=== PATIENT | female | born 1985 | race Caucasian/White ===

== ENCOUNTER → 2017-10-15 | Outpatient (CLI) | payer MEDICAID, SELFPAY | PROVIDERS: Family Provider Nurse Practitioner Family; Visit Provider Nurse Practitioner Family | DX: R10.10 Upper abdominal pain, unspecified (principal) | CPT/HCPCS: 76705 ==

== ENCOUNTER → 2018-01-10 10:02 | Outpatient (CLI) | payer MEDICAID, SELFPAY ==
--- NOTE | 2018-01-10 10:32 | NM_ITS ---
NM hepatobiliary w pharm HISTORY: Right upper quadrant pain with nausea and vomiting ITS.REASON: NAUSEA,VOMITING ORDERING PHYSICIAN: Zuleyka Lawson PATIENT AGE: 32 years COMPARISON: None DOSE: 8.34 MCI choletec 2.2 mcg of CCK, no pain reported with CCK infusion FINDINGS: Homogeneous activity is present within the hepatic parenchyma. Activity is present in the gallbladder by 15 minutes. Activity is present in the small bowel during the CCK infusion. The gallbladder ejection fraction is calculated to be 84% The patient did not report pain or other symptoms during CCK infusion. IMPRESSION: Unremarkable hepatobiliary scan and gallbladder ejection fraction. No evidence of common or cystic duct obstruction with normal gallbladder ejection fraction
== END ==
PROVIDERS: Family Provider Nurse Practitioner Family; PCP Nurse Practitioner Family; Visit Provider Nurse Practitioner
DX: R11.2 Nausea with vomiting, unspecified (principal)
CPT/HCPCS: 78227; A9537; J2805

== ENCOUNTER → 2018-07-28 12:29 | Outpatient (CLI) | payer MEDICAID, SELFPAY ==
--- NOTE | 2018-07-28 12:31 | XR_ITS ---
XR forearm LT 2V HISTORY: Left forearm pain, previous fracture ITS.REASON: left forearm pain ORDERING PHYSICIAN: Jesus Trejo MD PATIENT AGE: 33 years COMPARISON: 05/06/2017 FINDINGS: There is persistent fracture line at the junction of proximal and mid aspect of the ulna. There is a moderate amount callus formation however there does appear to be incomplete bony union. There is mild ulnar angulation of the distal fracture fragment. The radius has an unremarkable appearance. IMPRESSION: Overall no change in incomplete bony union of the ulnar fracture at the proximal to mid shaft of the ulna
== END ==
PROVIDERS: PCP Nurse Practitioner Family; Visit Provider Orthopaedic Surgery
DX: M79.632 Pain in left forearm (principal)
CPT/HCPCS: 73090

== ENCOUNTER → 2018-11-03 10:28 | Outpatient (CLI) | payer MEDICAID, SELFPAY | PROVIDERS: PCP Nurse Practitioner Family; Visit Provider Nurse Practitioner Family | DX: R00.0 Tachycardia, unspecified (principal); R00.2 Palpitations | CPT/HCPCS: 93225; 93226 ==

== ENCOUNTER → 2019-02-20 10:58 | Outpatient (CLI) | payer MEDICAID, SELFPAY ==
--- NOTE | 2019-02-20 11:14 | XR_ITS ---
XR elbow LT min 3V HISTORY: Bilateral elbow clicking ITS.REASON: CLICKING OF ELBOW ORDERING PHYSICIAN: Sada Rainey APRN PATIENT AGE: 33 years COMPARISON: None FINDINGS: There is a bone plate present over the proximal aspect of the ulna without old fracture. There is good alignment with minimal osteoarthritic changes with minimal spurring of the radial head and the coracoid process. No displaced fat pad. No acute fracture or dislocation. IMPRESSION: Minimal osteoarthritic change, prior ORIF of the proximal ulna
--- NOTE | 2019-02-20 11:14 | XR_ITS ---
XR elbow RT min 3V HISTORY: ITS.REASON: CLICKING OF ELBOW ORDERING PHYSICIAN: Sada Rainey APRN PATIENT AGE: 33 years COMPARISON: None FINDINGS: No fracture or dislocation. No lytic or blastic change. There is a tiny calcific density along the distal and anterior aspect of the humerus and could be due to an artifact. No displaced fat pads. IMPRESSION: 1. No acute finding. 2. Tiny density at the distal and anterior aspect of the humerus possibly due to a small intra-articular calcification versus artifact
== END ==
PROVIDERS: PCP Nurse Practitioner Family; Visit Provider Nurse Practitioner Family
DX: R29.898 Other symptoms and signs involving the musculoskeletal system (principal)
CPT/HCPCS: 73080

== ENCOUNTER → 2019-05-29 11:15 | Outpatient (CLI) | payer MEDICAID, SELFPAY ==
[2019-05-29 11:58] LABS: Basophils # 0.1 K/mm3 (0-0.2); Basophils % 0.7 % (0.1-2.0); Eosinophils # 0.4 K/mm3 (0.0-0.4); Eosinophils % 5.3 % (0.1-12.0); Hematocrit 43.1 % (37.0-47.0); Hemoglobin 14.6 g/dL (12.2-16.2); Lymphocytes # 2.8 K/mm3 (0.7-4.5); Lymphocytes % 36.2 % (10-50); Mean Corpuscular Hemoglobin 32.2 pg (27.0-31.2); Mean Corpuscular Volume 94.8 fl (81-99); Mean Platelet Volume 7.3 fl (7.4-10.4); Monocytes # 0.6 K/mm3 (0.1-1.0); Monocytes % 8.1 % (1.7-9.3); Neutrophils # 3.9 K/mm3 (1.8-7.8); Neutrophils % 49.8 % (37.0-80.0); Platelet Count 329 K/mm3 (142-424); Red Blood Count 4.54 M/mm3 (4.20-5.40); Red Cell Distribution Width 13.3 % (11.5-17.5); White Blood Count 7.8 K/mm3 (4.8-10.8)
[2019-05-29 13:04] LABS: Alanine Aminotransferase 35 U/L (12-78); Albumin Level 4.1 gm/dL (3.4-5.0); Albumin/Globulin Ratio 1.4 (1.1-1.8); Alkaline Phosphatase 79 U/L (46-116); Amylase 42 U/L (25-115); Anion Gap 12.4 mEq/L (5-15); Aspartate Amino Transferase 24 U/L (15-37); Bilirubin,Total 0.4 mg/dL (0.2-1.0); Blood Urea Nitrogen 10 mg/dL (7-18); Carbon Dioxide 30 mmol/L (21.0-32.0); Chloride 103 mmol/L (98-107); Creatinine,Serum 0.89 mg/dL (0.55-1.02); Estimated Glomerular Filt Rate 73 ml/min (>60); GFR (African American) 88 ML/MIN (>60); Globulin 2.9 gm/dl (1.3-3.2); Glucose 142 mg/dL (74-106); Lipase 159 u/L (73-393); Potassium 4.4 mmoL/L (3.5-5.1); Sodium 141 mmol/L (136-145)
[2019-05-31 09:42] LABS: H. pylori Breath Test Negative (Negative)
== END ==
PROVIDERS: Visit Provider Nurse Practitioner Family
DX: R10.13 Epigastric pain (principal); R10.10 Upper abdominal pain, unspecified
CPT/HCPCS: 36415; 80053; 82150; 83013; 83690; 85025

== ENCOUNTER → 2019-06-09 08:21 | Outpatient (CLI) | payer MEDICAID, SELFPAY ==
--- NOTE | 2019-06-09 08:32 | US_ITS ---
PROCEDURE: US ABDOMEN LIMITED Patient Age:34Y CLINICAL INDICATION: DYSPEPSIA,ABD PAIN Belching upper abdominal pain COMPARISON: RUQ US RUQ-(ABD LTD)1ORGAN/QUAD/FU from 10/15/2017 FINDINGS: PANCREAS: Unremarkable. No obvious mass or abnormal fluid collection. No ductal dilatation LIVER: No focal liver lesions demonstrated. Minimal fatty changes at liver.. No intrahepatic biliary ductal dilatation evident. There is appropriate direction of blood flow within a non dilated portal vein . Common duct normal in diameter measuring 3.5 mm and hilum of the liver. RIGHT KIDNEY: Unremarkable. Normal size and echogenicity. No hydronephrosis GALLBLADDER: No gallstones,. Minimal sludge Normal/Upper normal gallbladder wall thickness. No inflammatory changes adjacent to the gallbladder-No pericholecystic fluid, or biliary dilatation.. IMPRESSION: Gallbladder: No gallstones Only minimal sludge in gallbladder. Liver:. Minimal fatty changes throughout liver. Dictated by: Km Carter MD 06/09/2019 12:00 Signed by: <Electronically signed by Km Carter MD in [place]> 06/12/2019 16:26
== END ==
PROVIDERS: PCP Nurse Practitioner Family; Visit Provider Nurse Practitioner Family
DX: R10.13 Epigastric pain (principal); R10.10 Upper abdominal pain, unspecified
CPT/HCPCS: 76705

== ENCOUNTER → 2019-10-26 11:01 | Outpatient (CLI) | payer OTHER, SELFPAY ==
[2019-10-26 12:38] LABS: Alanine Aminotransferase 28 U/L (12-78); Albumin Level 4.3 gm/dL (3.4-5.0); Albumin/Globulin Ratio 1.5 (1.1-1.8); Alkaline Phosphatase 59 U/L (46-116); Anion Gap 14.9 mEq/L (5-15); Aspartate Amino Transferase 18 U/L (15-37); Bilirubin,Total 0.6 mg/dL (0.2-1.0); Blood Urea Nitrogen 8 mg/dL (7-18); Calcium 8.8 mg/dL (8.5-10.1); Carbon Dioxide 26 mmol/L (21.0-32.0); Chloride 103 mmol/L (98-107); Cholesterol 134 mg/dL (140-200); Creatinine,Serum 0.91 mg/dL (0.55-1.02); Estimated Glomerular Filt Rate 71 ml/min (>60); GFR (African American) 86 ML/MIN (>60); Globulin 2.8 gm/dl (1.3-3.2); Glucose 146 mg/dL (74-106); HDL Cholesterol 27 mg/dL (29-89); LDL Cholesterol 74 mg/dL (0-130); Potassium 3.9 mmoL/L (3.5-5.1); Sodium 140 mmol/L (136-145); Thyroid Stimulating Hormone 0.37 uIU/ml (0.358-3.740); Total Protein,Serum 7.1 gm/dL (6.4-8.2); Triglycerides 163 mg/dL (30-200); VLDL Cholesterol 33 mg/dL (0-40)
== END ==
PROVIDERS: Visit Provider Nurse Practitioner Family
DX: I10 Essential (primary) hypertension (principal)
CPT/HCPCS: 36415; 80053; 80061; 84443

== ENCOUNTER → 2019-11-02 11:17 | Outpatient (CLI) | payer OTHER, SELFPAY ==
--- NOTE | 2019-11-02 13:31 | CT_ITS ---
PROCEDURE: CT ABDOMEN PELVIS W CON CLINICAL INDICATION: RIGHT SIDE ABD PAIN Right-sided abdominal pain with fever COMPARISON: No exams were available for comparison TECHNIQUE: IV Contrast: 75ML OPTIRAY 350 Oral Contrast 20ml Gastroview Axial images obtained with sagittal and coronal reformats. All CT scans at the facility use one or more dose reduction, viz: automated exposure control, ma/kV adjustment per patient size (including targeted exams where dose is matched to indication, i.e. head), or iterative reconstruction technique. FINDINGS: LOWER THORAX: No acute finding ABDOMEN & PELVIS: The liver, gallbladder, spleen, pancreas, adrenal glands, and kidneys have an unremarkable appearance. No renal or ureteral calculi. No intestinal obstruction or free air. The appendix is slightly plump measuring up to 9 mm in diameter. There is however no stranding of the periappendiceal fat and no fluid evident within the appendiceal lumen. No periappendiceal fluid collections or free air. No pelvic mass abnormal fluid collection or focal inflammatory change. Air density is present in the vagina consistent with a tampon. No acute bony findings are evident. IMPRESSION: 1. The appendix is slightly plump. This may only represent a variation of normal. No stranding of the periappendiceal fat or abnormal fluid collections. Early appendicitis is not excluded by CT criteria. Correlation with clinical parameters is therefore needed. If clinical findings are inconclusive then, would recommend a follow-up exam with contrast in 12-24 hours. 2. Otherwise negative Dictated by: Fco Ritchei MD 11/02/2019 14:34 Electronically signed by Fco Ritchie MD in [place] 11/02/2019 14:34
== END ==
PROVIDERS: PCP Nurse Practitioner Family; Visit Provider Nurse Practitioner Family
DX: R10.9 Unspecified abdominal pain (principal); R50.9 Fever, unspecified
CPT/HCPCS: 74177; Q9967

== ENCOUNTER → 2020-04-05 15:11 | Outpatient (CLI) | payer OTHER, SELFPAY ==
--- NOTE | 2020-04-05 15:18 | XR_ITS ---
PROCEDURE: XR SHOULDER RT MIN 2V CLINICAL INDICATION: RT ROTATOR CUFF INJURY Anterior shoulder pain COMPARISON: No exams were available for comparison FINDINGS: No fracture or dislocation. No lytic or blastic change. There is normal mineralization. The joint spaces are well-preserved. No significant degenerative/arthritic changes. No erosive changes evident. Other findings:There is some minimal soft tissue calcification versus artifact superior to the AC joint. IMPRESSION: Negative right shoulder Dictated by: Fco Ritchie MD 04/05/2020 16:01 Electronically signed by Fco Ritchie MD in [place] 04/05/2020 16:01
== END ==
PROVIDERS: PCP Nurse Practitioner Family; Visit Provider Nurse Practitioner Family
DX: S46.001A Unspecified injury of muscle(s) and tendon(s) of the rotator cuff of right shoulder, initial encounter (principal); S49.91XA Unspecified injury of right shoulder and upper arm, initial encounter
CPT/HCPCS: 73030

== ENCOUNTER → 2020-10-14 10:41 | Outpatient (CLI) | payer OTHER, SELFPAY ==
--- NOTE | 2020-10-14 10:50 | XR_ITS ---
PROCEDURE: XR FOOT LT MIN 3V CLINICAL INDICATION: LT FOOT PAIN COMPARISON: No exams were available for comparison FINDINGS: No fracture or dislocation. No lytic or blastic change. There is normal mineralization. The joint spaces are well-preserved. There is mild spurring superiorly of the talonavicular articulation.. No erosive changes evident. Other findings:None. IMPRESSION: No acute findings. Dictated by: Dr. Broderick Chavarria MD 10/14/2020 12:43 Dr. Broderick Chavarria MD in [place] 10/14/2020 12:43
== END ==
PROVIDERS: PCP Nurse Practitioner Family; Visit Provider Nurse Practitioner Family
DX: M79.672 Pain in left foot (principal)
CPT/HCPCS: 73630

== ENCOUNTER → 2021-04-24 10:53 | Outpatient (CLI) | payer OTHER, SELFPAY ==
--- NOTE | 2021-04-24 11:01 | US_ITS ---
PROCEDURE: US TRANSVAGINAL CLINICAL INDICATION: PELVIC PAIN Vaginal discharge COMPARISON: CT CT ABDOMEN PELVIS W CON from 11/02/2019 FINDINGS: UTERUS: 9cm x 5cmx 5cm with a combined endometrial thickness of 5.9mm LEFT OVARY: [id number] with a volume of 3.8ml. RIGHT OVARY: [id number] with a volume of 11.1ml. 13 mm nabothian cyst is present along the posterior aspect of the cervix. scar is noted anteriorly. In the anterior aspect of the body of the uterus there is a 2 x 1.7 cm area of mixed echogenicity suggesting a fibroid. No cul-de-sac fluid apparent. There is bilateral ovarian blood flow with small follicles on both sides measuring up to 1.3 cm on the right. IMPRESSION: Nabothian cyst. Small uterine fibroid Dictated by: Fco Ritchie MD 04/24/2021 12:18 Fco Ritchie MD in [place] 04/24/2021 12:18
== END ==
PROVIDERS: PCP Nurse Practitioner Family; Visit Provider Nurse Practitioner Family
DX: R10.2 Pelvic and perineal pain (principal)
CPT/HCPCS: 76830

== ENCOUNTER → 2021-07-08 10:18 | Outpatient (CLI) | payer OTHER, SELFPAY ==
[2021-07-08 11:00] LABS: Chloride 104 mmol/L (98-107)
[2021-07-08 11:01] LABS: Potassium 4.3 mmoL/L (3.5-5.1); Sodium 141 mmol/L (136-145)
[2021-07-08 11:03] LABS: Alanine Aminotransferase 24 U/L (12-78); Aspartate Amino Transferase 23 U/L (14-36); Blood Urea Nitrogen 13 mg/dl (7-17); Estimated Glomerular Filt Rate 95 ml/min (>60); GFR (African American) 115 ML/MIN (>60)
[2021-07-08 11:04] LABS: Albumin Level 4.2 g/dl (3.5-5.0); Albumin/Globulin Ratio 1.8 (1.1-1.8); Alkaline Phosphatase 81 U/L (38-126); Anion Gap 17.3 mEq/L (5-15); Bilirubin,Total 0.2 mg/dl (0.2-1.3); Calcium 8.6 mg/dl (8.4-10.2); Carbon Dioxide 24 mmol/L (22.0-30.0); Globulin 2.4 g/dL (1.3-3.2); Glucose 154 mg/dl (74-100); Total Protein,Serum 6.6 g/dl (6.3-8.2)
[2021-07-08 11:36] LABS: Thyroid Stimulating Hormone 0.63 uIU/mL (0.465-4.68)
== END ==
PROVIDERS: Visit Provider Nurse Practitioner Family
DX: R63.5 Abnormal weight gain (principal)
CPT/HCPCS: 36415; 80053; 83036; 84439; 84443

== ENCOUNTER → 2022-02-19 11:02 | Outpatient (CLI) | payer OTHER, SELFPAY ==
[2022-02-19 12:04] LABS: Chloride 105 mmol/L (98-107); Potassium 4.1 mmoL/L (3.5-5.1); Sodium 140 mmol/L (136-145)
[2022-02-19 12:05] LABS: Hemoglobin A1C 6.2 % (4.0-6.0)
[2022-02-19 12:06] LABS: Alanine Aminotransferase 22 U/L (12-78); Alkaline Phosphatase 50 U/L (38-126); Aspartate Amino Transferase 26 U/L (14-36); Blood Urea Nitrogen 10 mg/dl (7-17); Estimated Glomerular Filt Rate 82 ml/min (>60); GFR (African American) 99 ML/MIN (>60)
[2022-02-19 12:07] LABS: Albumin Level 4.5 g/dl (3.5-5.0); Anion Gap 14.1 mEq/L (5-15); Calcium 9.7 mg/dl (8.4-10.2); Carbon Dioxide 25 mmol/L (22.0-30.0); Globulin 2.3 g/dL (1.3-3.2); Glucose 153 mg/dl (74-100); Total Protein,Serum 6.8 g/dl (6.3-8.2)
[2022-02-19 12:37] LABS: Thyroid Stimulating Hormone 0.26 uIU/mL (0.465-4.68)
== END ==
PROVIDERS: PCP Nurse Practitioner Family; Visit Provider Nurse Practitioner Family
DX: E11.9 Type 2 diabetes mellitus without complications (principal); I10 Essential (primary) hypertension; Z79.4 Long term (current) use of insulin
CPT/HCPCS: 36415; 80053; 83036; 84443

== ENCOUNTER 2023-10-25 16:33 | Outpatient (CLI) | payer OTHER, SELFPAY ==
[2023-10-25 17:31] LABS: Erythrocyte Sedimentation Rate 14 mm/hr (0-20)
[2023-10-25 17:42] LABS: Alanine Aminotransferase 21 U/L (12-78); Albumin Level 4.2 g/dl (3.5-5.0); Albumin/Globulin Ratio 1.8 (1.1-1.8); Alkaline Phosphatase 68 U/L (38-126); Anion Gap 10.9 mEq/L (5-15); Aspartate Amino Transferase 25 U/L (14-36); Bilirubin,Total 0.7 mg/dl (0.2-1.3); Blood Urea Nitrogen 7 mg/dl (7-17); Calcium 8.6 mg/dl (8.4-10.2); Carbon Dioxide 25 mmol/L (22.0-30.0); Chloride 105 mmol/L (98-107); Chol/HDL Ratio 5.7 (1-3.5); Cholesterol 131 mg/dl (140-200); Estimated Glomerular Filt Rate 81 ml/min (>60); GFR (African American) 98 ML/MIN (>60); Globulin 2.4 g/dL (1.3-3.2); Glucose 104 mg/dl (74-100); HDL Cholesterol 23 mg/dl (40-60); Magnesium 1.8 mg/dl (1.6-2.3); Potassium 3.9 mmoL/L (3.5-5.1); Sodium 137 mmol/L (136-145); Total Protein,Serum 6.6 g/dl (6.3-8.2); Triglycerides 301 mg/dl (30-150); Uric Acid 4.3 mg/dl (2.5-6.2); VLDL Cholesterol 60 mg/dL (0-40)
[2023-10-25 17:53] LABS: Direct LDL Cholesterol 74.42 mg/dL (100-129)
[2023-10-25 18:13] LABS: Hemoglobin A1C 6.3 % (4.0-6.0)
[2023-10-25 18:14] LABS: Thyroid Stimulating Hormone 0.59 uIU/mL (0.465-4.68)
[2023-10-25 18:16] LABS: Ferritin 95.9 ng/ml (6.24-137)
[2023-10-27 08:32] LABS: RA Latex Turbid. <10.0 IU/mL (<14.0)
[2023-10-28 13:21] LABS: Antinuclear Antibodies, IFA Negative (.)
== END 2023-10-25 23:59 ==
LOC: LAB.DROPOF 16:33
PROVIDERS: PCP Nurse Practitioner Family; Visit Provider Nurse Practitioner Family
DX: E11.9 Type 2 diabetes mellitus without complications (principal); M25.50 Pain in unspecified joint; R20.2 Paresthesia of skin; R00.2 Palpitations; R63.5 Abnormal weight gain; Z68.37 Body mass index [BMI] 37.0-37.9, adult
CPT/HCPCS: 80053; 80061; 82728; 83036; 83735; 84443; 84550; 85651; 86038; 86431

== ENCOUNTER 2024-02-01 17:01 | Outpatient (CLI) | payer OTHER, SELFPAY ==
[2024-02-01 17:40] LABS: Basophils # 0.1 K/mm3 (0-0.2); Basophils % 1.2 % (0.1-2.0); Eosinophils # 0.2 K/mm3 (0.0-0.4); Eosinophils % 2.9 % (0.1-12.0); Hematocrit 45.7 % (37.0-47.0); Hemoglobin 15.5 g/dL (12.2-16.2); Lymphocytes # 2.8 K/mm3 (0.7-4.5); Lymphocytes % 37.9 % (10-50); Mean Corpuscular Hemoglobin 33.3 pg (27.0-31.2); Mean Corpuscular Volume 97.8 fl (81-99); Mean Platelet Volume 8.3 fl (7.4-10.4); Monocytes # 0.6 K/mm3 (0.1-1.0); Monocytes % 8.1 % (1.7-9.3); Neutrophils # 3.7 K/mm3 (1.8-7.8); Neutrophils % 49.9 % (37.0-80.0); Platelet Count 315 K/mm3 (142-424); Red Blood Count 4.67 M/mm3 (4.20-5.40); Red Cell Distribution Width 13.5 % (11.5-17.5); White Blood Count 7.5 K/mm3 (4.8-10.8)
[2024-02-01 18:42] LABS: Alanine Aminotransferase 29 U/L (12-78); Albumin Level 4.5 g/dl (3.5-5.0); Alkaline Phosphatase 54 U/L (38-126); Anion Gap 14.7 mEq/L (5-15); Aspartate Amino Transferase 32 U/L (14-36); Bilirubin,Total 0.6 mg/dl (0.2-1.3); Blood Urea Nitrogen 10 mg/dl (7-17); Calcium 9.5 mg/dl (8.4-10.2); Carbon Dioxide 23 mmol/L (22.0-30.0); Chloride 109 mmol/L (98-107); Chol/HDL Ratio 4.4 (1-3.5); Cholesterol 148 mg/dl (140-200); Estimated Glomerular Filt Rate 81 ml/min (>60); GFR (African American) 98 ML/MIN (>60); Globulin 2.3 g/dL (1.3-3.2); Glucose 104 mg/dl (74-100); HDL Cholesterol 34 mg/dl (40-60); Potassium 3.7 mmoL/L (3.5-5.1); Sodium 143 mmol/L (136-145); Total Protein,Serum 6.8 g/dl (6.3-8.2); Triglycerides 198 mg/dl (30-150); VLDL Cholesterol 40 mg/dL (0-40)
[2024-02-01 18:58] LABS: T4 (Thyroxine) 9.8 ug/dl (5.53-11.0)
[2024-02-01 19:04] LABS: Hemoglobin A1C 6.6 % (4.0-6.0)
[2024-02-01 19:12] LABS: Thyroid Stimulating Hormone 0.32 uIU/mL (0.465-4.68)
[2024-02-01 19:46] LABS: Direct LDL Cholesterol 82.73 mg/dL (100-129)
[2024-02-03 12:43] LABS: Triiodothyronine (T3) Free 3.7 pg/mL (2.0-4.4)
== END 2024-02-01 23:59 | disposition home or self-care (01) ==
LOC: LAB.DROPOF 17:02
PROVIDERS: PCP Nurse Practitioner Family; Visit Provider Nurse Practitioner Family
DX: I10 Essential (primary) hypertension (principal); R63.5 Abnormal weight gain; R00.2 Palpitations; E11.9 Type 2 diabetes mellitus without complications; Z79.899 Other long term (current) drug therapy
CPT/HCPCS: 80053; 80061; 83036; 84436; 84443; 84481; 85025

== ENCOUNTER 2024-03-24 10:22 | Outpatient (CLI) | payer OTHER, SELFPAY ==
--- NOTE | 2024-03-24 10:28 | XR_ITS ---
FINAL REPORT CLINICAL HISTORY: left upper chest injury on 03/10/24 FINDINGS: 2 views of the chest were obtained . The heart is normal in size. The mediastinum is within normal limits. The lungs are clear. There is no pneumothorax. Osseous structures are unremarkable. IMPRESSION: No acute cardiopulmonary process. Reviewed, Interpreted and Dictated by Raul Vicente III, MD Transcribed by Joy Scott Authenticated and . [facility]
== END 2024-03-24 23:59 | disposition home or self-care (01) ==
LOC: RAD 10:22
PROVIDERS: PCP Nurse Practitioner Family; Visit Provider Nurse Practitioner Family
DX: R07.89 Other chest pain (principal); S29.9XXA Unspecified injury of thorax, initial encounter
CPT/HCPCS: 71046

== ENCOUNTER 2025-01-10 10:17 | Outpatient (CLI) | payer OTHER, SELFPAY ==
--- NOTE | 2025-01-10 10:23 | XR_ITS ---
FINAL REPORT CLINICAL HISTORY: right foot pain and swelling..no trauma FINDINGS: AP, oblique and lateral views of the right foot were obtained. There is no acute fracture or dislocation. Deformity of the navicular could be related to old trauma or degenerative change. The joint spaces are preserved. Soft tissues are unremarkable. IMPRESSION: No acute osseous abnormality of the right foot. Reviewed, Interpreted and Dictated by Gem Judge MD Transcribed by Mariana Stern Authenticated and [facility]
--- NOTE | 2025-01-10 10:23 | XR_ITS ---
FINAL REPORT CLINICAL HISTORY: dorsalgia of lumbar spine..pain..no trauma FINDINGS: AP and lateral views of the lumbar spine were obtained. There is no prior exam for comparison. There is no acute fracture. There is grade 1 anterior spondylolisthesis of L5 on S1. Alignment is otherwise normal. Vertebral body height is preserved. There is mild degenerative disc disease. No acute paraspinal abnormality. IMPRESSION: No acute osseous abnormality of the lumbar spine. Mild degenerative disc disease. Reviewed, Interpreted and Dictated by Gem Judge MD Transcribed by Mariana Stern Authenticated and [facility]
--- NOTE | 2025-01-10 10:23 | XR_ITS ---
FINAL REPORT CLINICAL HISTORY: coccydynia..no trauma..pain FINDINGS: AP and lateral views of the sacrum and coccyx were obtained. There is no prior exam for comparison. There is no acute fracture or other acute osseous abnormality. The SI joints are symmetric bilaterally. There is no ankylosis. The sacrococcygeal articulation appears within normal limits. No acute soft tissue abnormality is present. IMPRESSION: No acute abnormality of the sacrum or coccyx. Reviewed, Interpreted and Dictated by Gem Judge MD Transcribed by Mariana Stern Authenticated and [facility]
[2025-01-10 11:01] LABS: Basophils # 0.1 K/mm3 (0-0.2); Basophils % 0.7 % (0.1-2.0); Eosinophils # 0.5 K/mm3 (0.0-0.4); Eosinophils % 4.8 % (0.1-12.0); Hematocrit 42.7 % (37.0-47.0); Hemoglobin 15.1 g/dL (12.2-16.2); Lymphocytes # 2.8 K/mm3 (0.7-4.5); Lymphocytes % 27.8 % (10-50); Mean Corpuscular HGB Conc 35.4 g/dL (31.8-35.4); Mean Corpuscular Hemoglobin 32.6 pg (27.0-31.2); Mean Corpuscular Volume 92.2 fl (81-99); Mean Platelet Volume 9.8 fl (7.4-10.4); Monocytes # 0.6 K/mm3 (0.1-1.0); Monocytes % 5.5 % (1.7-9.3); Neutrophils # 6.1 K/mm3 (1.8-7.8); Neutrophils % 60.8 % (37.0-80.0); Platelet Count 314 K/mm3 (142-424); Red Blood Count 4.63 M/mm3 (4.20-5.40); Red Cell Distribution Width 12.5 % (11.5-17.5)
[2025-01-10 11:20] LABS: Alanine Aminotransferase 19 U/L (12-78); Albumin Level 4.8 g/dl (3.5-5.0); Albumin/Globulin Ratio 2.3 (1.1-1.8); Alkaline Phosphatase 55 U/L (38-126); Anion Gap 17.3 mEq/L (5-15); Aspartate Amino Transferase 19 U/L (14-36); Bilirubin,Total 0.5 mg/dl (0.2-1.3); Blood Urea Nitrogen 17 mg/dl (7-17); Calcium 9.9 mg/dl (8.4-10.2); Carbon Dioxide 22 mmol/L (22.0-30.0); Chloride 104 mmol/L (98-107); Chol/HDL Ratio 3.3 (1-3.5); Cholesterol 134 mg/dl (140-200); Estimated Glomerular Filt Rate 70 ml/min (>60); GFR (African American) 85 ML/MIN (>60); Globulin 2.1 g/dL (1.3-3.2); Glucose 118 mg/dl (74-100); HDL Cholesterol 41 mg/dl (40-60); Magnesium 2.1 mg/dl (1.6-2.3); Potassium 4.3 mmoL/L (3.5-5.1); Sodium 139 mmol/L (136-145); Total Protein,Serum 6.9 g/dl (6.3-8.2); Triglycerides 98 mg/dl (30-150); VLDL Cholesterol 20 mg/dL (0-40)
[2025-01-10 11:31] LABS: Direct LDL Cholesterol 74.28 mg/dL (100-129)
[2025-01-10 11:37] LABS: Free T4 (Free Thyroxine) 1.13 ng/dl (0.78-2.19); T4 (Thyroxine) 7.9 ug/dl (5.53-11.0)
[2025-01-10 11:51] LABS: Thyroid Stimulating Hormone 0.68 uIU/mL (0.465-4.68)
[2025-01-10 12:33] LABS: Creatinine,Urine Random 93 mg/dL (Not Estab.)
[2025-01-10 12:38] LABS: Microalbumin < 6.000 mg/L (0-16.7)
[2025-01-10 15:09] LABS: Hemoglobin A1C 6.3 % (4.0-6.0)
[2025-01-11 14:12] LABS: Triiodothyronine (T3) Free 2.9 pg/mL (2.0-4.4)
[2025-01-12 15:26] LABS: Lyme B. burgdorferi PCR Blood Negative (Negative)
== END 2025-01-10 23:59 | disposition home or self-care (01) ==
LOC: LAB 10:18
PROVIDERS: PCP Nurse Practitioner Family; Visit Provider Nurse Practitioner Family
DX: I10 Essential (primary) hypertension (principal); M53.3 Sacrococcygeal disorders, not elsewhere classified; M54.50 Low back pain, unspecified; S99.921A Unspecified injury of right foot, initial encounter; E11.9 Type 2 diabetes mellitus without complications; E05.90 Thyrotoxicosis, unspecified without thyrotoxic crisis or storm; W57.XXXA Bitten or stung by nonvenomous insect and other nonvenomous arthropods, initial encounter
CPT/HCPCS: 36415; 72100; 72220; 73630; 80053; 80061; 82043; 82570; 83036; 83735; 84436; 84439; 84443; 84481; 85025; 87476

== ENCOUNTER 2025-06-11 12:27 | Outpatient (CLI) | payer OTHER, SELFPAY ==
--- OUTSIDE RECORDS SUMMARY | 2024-08-23 04:00 | XMS_ITS ---
Author Organization [facility] Address [address] [place] [address] Care Team Providers Care Hospital Pharmacy Technician Name Role Phone NORA ISBELL Primary Care Provider MEREDITH FONSECA Unavailable [phone] REASON FOR VISIT LR pain Social History Sex Assigned At : Social History Observation Description Sex Assigned At Female Encounters Encounter Location Date Provider Diagnosis [facility] [address] [place] [address] 08/23/2024 MEREDITH FONSECA Plan Of Treatment No Information Progress Notes * Kassandra MONTOYADOB:1985 (40 yo F)Acc No.[id number]:08/23/2024 Patient: Kassandra Alcala Provider: Jerrod FONSECA DDS :1985 A ge:39 Y S ex:Female Date:08/23/2024 Address:[address], [facility] Pcp:NORA ISBELL Structured Data:[place] : No ; Migrant : No; Not UDS Housing Situation : Own/rent Subjective: * Chief Complaints: * L R pain Billing Information: * Procedure Codes: * Electronic signature of MEREDITH FONSECA DDS on 06/13/2025 at 12:30 PM EDT Sign off status: Pending * Provider: Jerrod FONSECA DDS Date: 10/23/2023 Generated for Mali mera/Sebastian/Rosanna on: 0 06/13/2025 12:30 PM EDT
--- OUTSIDE RECORDS SUMMARY | 2024-10-26 06:30 | XMS_ITS ---
Author Organization [facility] Address [address] [place] [address] Care Team Providers Care Forensic Psychiatrist Name Role Phone NORA ISBELL Primary Care Provider [phone] Allergies Allergen (clinical drug ingredient) Drug/Non Drug Allergy documented on EMR Reaction Allergy Type Onset Date Status No Known Food Allergy Unknown Drug Allergy active Penicillin hives Drug Allergy active REASON FOR VISIT Establish Care Visit / Over all check-up Social History Sex Assigned At : Social History Observation Description Sex Assigned At Female Encounters Encounter Location Date Provider Diagnosis [facility] [address] [place] [facility] [place] [address] 10/26/2024 NORA ISBELL Essential hypertensi on I10 ; Longstanding persistent atrial fibrillation I48.11 ; Migraine without aura and without status migrainosus, not intractable G43.009 ; Type 2 diabetes, HbA1c goal < 7% E11.9 ; Mixed hyperlipidemia E78.2 ; Body mass index (BMI) of 36.0-36.9 in adult Z68.36 and Adult general medical exam Z00.00 Assessments Encounter Date Diagnosis (ICD Code) Assessment Notes Treatment Notes Treatment Clinical Notes Section Notes 10/26/2024 Essential hypertension (ICD-10 - I10) 10/26/2024 Longstanding persistent atrial fibrillation (ICD-10 - I48.11) 10/26/2024 Migraine without aura and without status migrainosus, not intractable (ICD-10 - G43.009) 10/26/2024 Type 2 diabetes, HbA1c goal < 7% (ICD-10 - E11.9) 10/26/2024 Mixed hyperlipidemia (ICD-10 - E78.2) 10/26/2024 Body mass index (BMI) of 36.0-36.9 in adult (ICD-10 - Z68.36) 10/26/2024 Adult general medical exam (ICD-10 - Z00.00) Plan Of Treatment No Information History and Physical Notes * HPI (History of Present Illness) Category Sub-Category Detail Notes Category Not es General HPI Pt is a ___ y/o male with PMH of ____ who presents to clinic today as a new patient to establish care and get medications refilled. Pt states that he is feeling well, and denies any current sxs or health concerns. He states that he is compliant in taking his medications, and believes they are working well for him. Exercise: Diet: Colon CA screen: Examination Category Sub-Category Detail Notes Category Not es General Examination GENERAL APPEARANCE: alert an d active in no acute distress, pleasant, well nourished, well developed. HEAD: normocephalic, atrau matic EYES: extraocular movement intact (EOMI), pupils equal, round, reactive to light and accommodation, conjunctiva clear EARS: auditory canal clear , hearing intact to whispered voice, tympanic membrane intact, clear, light reflex present THROAT: clear, no erythema, no exudate, tonsils normal, uvula midline NECK/THYROID: no carotid bruit, ne ck supple, full range of motion, no cervical lymphadenopathy HEART: S1, S2 normal, no mu rmurs, regular rate and rhythm LUNGS: clear to auscultatio n bilaterally ABDOMEN: non-distended, normo active bowel sounds present, soft, nontender NEUROLOGIC: alert and oriented, gait normal SKIN: no suspicious lesion s, warm and dry PERIPHERAL PULSES: 2+ throughout MUSCULOSKELETAL: normal, full range o f motion in all joints. ORAL CAVITY: good dentition, muco sa moist Progress Notes * Kassandra MONTOYADOB:1985 (40 yo F)Acc No.[id number]:10/26/2024 Progress Notes Patient: Kassandra Alcala Provider: Rubén ISBELL APRN :1985 A ge:39 Y S ex:Female Date:10/26/2024 Address:[address] [facility] Structured Data: : No ; Migrant : No; Not UDS Housing Situation : Own/rent Subjective: * Chief Complaints: * E stablish Care Visit / Over all check-up * HPI: G eneral HPI: Pt is a ___ y/o male with PMH of ____ who presents to clinic today as a new patient to establish care and get medications refilled. Pt states that he is feeling well, and denies any current sxs or health concerns. He states that he is compliant in taking his medications, and believes they are working well for him. Exercise: Diet: Colon CA screen:. * ROS: G eneral ROS: General/Constitutional: D ENIES:, f ever, chills, fatigue, headache, changes in appetite, weight gain/loss. R espiratory: D ENIES:, C hest pain, cough, shortness of breath, sputum production, wheezing. C ardiovascular: D ENIES:, C hest pain, palpitations, heart murmur, high blood pressure, orthopnea, lower extremity edema. G astrointestinal: D ENIES:, A bdominal pain, nausea, vomiting, diarrhea, constipation, blood in stool, change in bowel habits, heartburn, weight loss. P sychiatric: D ENIES:, A nxiety, depressed mood, sleep disturbance, mood lability, thoughs of suicide/self harm. * Allergies: P enicillin: hives - AllergyNo Known Food Allergy: Allergy Objective: * P ast Orders: L ab:LIPID PANEL WITH REFLEX TO DIRECT LDL (Order Date - 08/16/2024) (Collection Date & Time - 08/16/2024 10:28 AM) Value Reference Range TRIGLYCERIDES 143 <150 - mg/dL CHOLESTEROL, TOTAL 121 <200 - mg/dL HDL CHOLESTEROL 38 L > OR = 50 - mg/dL LDL-CHOLESTEROL 60 - mg/dL (calc) CHOL/HDLC RATIO 3.2 <5.0 - (calc) NON HDL CHOLESTEROL 83 <130 - mg/dL (calc) L ab:TSH+FREE T4 (Order Date - 08/16/2024) (Collection Date & Time - 08/16/2024 10:28 AM) Value Reference Range T4, FREE 1.1 0.8-1.8 - ng/dL TSH 0.81 - mIU/L L ab:JILL SCR, IFA W/REFL TITER/PATTERN/LUPUS PNL 4 (Order Date - 08/16/2024) (Collection Date & Time - 08/16/2024 10:28 AM) Value Reference Range JILL SCREEN, IFA NEGATIVE NEGATIVE - COMPLEMENT COMPONENT C3C 166 83-193 - mg/dL COMPLEMENT COMPONENT C4C 24 15-57 - mg/dL DNA (DS) ANTIBODY 1 - IU/mL RIBOSOMAL P ANTIBODY <1.0 NEG <1.0 NEG - AI SM ANTIBODY <1.0 NEG <1.0 NEG - AI SM/COSMETIC SURGEON ANTIBODY <1.0 NEG <1.0 NEG - AI SJOGREN'S ANTIBODY (SS-A) <1.0 NEG <1.0 NEG - AI SJOGREN'S ANTIBODY (SS-B) <1.0 NEG <1.0 NEG - AI THYROID PEROXIDASE ANTIBODIES 1 <9 - IU/mL SCL-70 ANTIBODY <1.0 NEG <1.0 NEG - AI RHEUMATOID FACTOR 11 <14 - IU/mL L ab:COMPREHENSIVE METABOLIC PANEL (Order Date - 08/16/2024) (Collection Date & Time - 08/16/2024 10:28 AM) Value Reference Range GLUCOSE 107 H 65-99 - mg/dL UREA NITROGEN (BUN) 12 7-25 - mg/dL CREATININE 0.72 0.50-0.97 - mg/dL BUN/CREATININE RATIO SEE NOTE: 6-22 - (calc) SODIUM 137 135-146 - mmol/L POTASSIUM 4.0 3.5-5.3 - mmol/L CHLORIDE 107 98-110 - mmol/L CARBON DIOXIDE 24 20-32 - mmol/L CALCIUM 9.0 8.6-10.2 - mg/dL PROTEIN, TOTAL 6.6 6.1-8.1 - g/dL ALBUMIN 4.1 3.6-5.1 - g/dL GLOBULIN 2.5 1.9-3.7 - g/dL (calc ) ALBUMIN/GLOBULIN RATIO 1.6 1.0-2.5 - (calc) BILIRUBIN, TOTAL 0.4 0.2-1.2 - mg/dL ALKALINE PHOSPHATASE 44 31-125 - U/L AST 11 10-30 - U/L ALT 10 6-29 - U/L EGFR 110 > OR = 60 - mL/min/1 .73m2 L ab:CBC (INCLUDES DIFF/PLT) (Order Date - 08/16/2024) (Collection Date & Time - 08/16/2024 10:28 AM) Value Reference Range WHITE BLOOD CELL COUNT 10.6 3.8-10.8 - Thous[place] nd/uL RED BLOOD CELL COUNT 4.74 3.80-5.10 - Million /uL HEMOGLOBIN 14.8 11.7-15.5 - g/dL HEMATOCRIT 45.9 H 35.0-45.0 - % MCV 96.8 80.0-100.0 - fL MCH 31.2 27.0-33.0 - pg MCHC 32.2 32.0-36.0 - g/dL RDW 12.5 11.0-15.0 - % PLATELET COUNT 327 140-400 - Thousand/u L NEUTROPHILS 63 - % ABSOLUTE NEUTROPHILS 6678 2168-8031 - cells/u L LYMPHOCYTES 28.3 - % ABSOLUTE LYMPHOCYTES 3000 850-3900 - cells/uL MONOCYTES 4.8 - % ABSOLUTE MONOCYTES 509 200-950 - cells/uL EOSINOPHILS 3.1 - % ABSOLUTE EOSINOPHILS 329 15-500 - cells/uL BASOPHILS 0.8 - % ABSOLUTE BASOPHILS 85 0-200 - cells/uL MPV 9.8 7.5-12.5 - fL L ab:HEMOGLOBIN A1c (Order Date - 08/16/2024) (Collection Date & Time - 08/16/2024 10:28 AM) Value Reference Range HEMOGLOBIN A1c 6.5 H <5.7 - % of total Hg b * Examination: G eneral Examination: GENERAL APPEARANCE: a lert and active in no acute distress, pleasant, well nourished, well developed.. HEAD: n ormocephalic, atraumatic. EYES: e xtraocular movement intact (EOMI), pupils equal, round, reactive to light and accommodation, conjunctiva clear. EARS: a uditory canal clear, hearing intact to whispered voice, tympanic membrane intact, clear, light reflex present. ORAL CAVITY: g ood dentition, mucosa moist. THROAT: c lear, no erythema, no exudate, tonsils normal, uvula midline. NECK/THYROID: n o carotid bruit, neck supple, full range of motion, no cervical lymphadenopathy. HEART: S 1, S2 normal, no murmurs, regular rate and rhythm.? LUNGS: c lear to auscultation bilaterally. ABDOMEN: n on-distended, normoactive bowel sounds present, soft, nontender. MUSCULOSKELETAL: n ormal, full range of motion in all joints.. PERIPHERAL PULSES: 2 + throughout. NEUROLOGIC: a lert and oriented, gait normal. SKIN: n o suspicious lesions, warm and dry. ? Assessment: * Assessment: 1. E ssential hypertension - I10 (Primary) 2 . L ongstanding persistent atrial fibrillation - I48.11 3 . M igraine without aura and without status migrainosus, not intractable - G43.009 4 . T ype 2 diabetes, HbA1c goal < 7% - E11.9 5. M ixed hyperlipidemia - E78.2 6 . B danielle mass index (BMI) of 36.0-36.9 in adult - Z68.36 7 . A dult general medical exam - Z00.00 ? Billing Information: * Procedure Codes: * Electronic signature of BOOGIE ISBELL APRN on 06/13/2025 at 12:29 PM EDT Sign off status: Pending * Provider: Rubén ISBELL APRN Date: 0 10/26/2024 Generated for [place]i mera/Sebastian/Johnitting on: 0 06/13/2025 12:29 PM EDT
[2025-06-11 14:25] LABS: Hematocrit 46.4 % (37.0-47.0); Hemoglobin 16.2 g/dL (12.2-16.2); Immature Granulocytes % 0.3 %; Mean Corpuscular HGB Conc 34.9 g/dL (31.8-35.4); Mean Corpuscular Hemoglobin 32.4 pg (27.0-31.2); Mean Corpuscular Volume 92.8 fl (81-99); Nucleated Red Blood Cells % 0 %; Platelet Count 270 K/mm3 (142-424); Red Blood Count 5.00 M/mm3 (4.20-5.40); Red Cell Distribution Width-SD 41.5 fL; White Blood Count 13.3 K/mm3 (4.8-10.8)
[2025-06-11 15:00] LABS: Alanine Aminotransferase 19 U/L (12-78); Albumin Level 4.5 g/dl (3.5-5.0); Albumin/Globulin Ratio 2.1 (1.1-1.8); Alkaline Phosphatase 63 U/L (38-126); Anion Gap 15.4 mEq/L (5-15); Aspartate Amino Transferase 23 U/L (14-36); Bilirubin,Total 0.7 mg/dl (0.2-1.3); Blood Urea Nitrogen 14 mg/dl (7-17); Calcium 9.5 mg/dl (8.4-10.2); Carbon Dioxide 24 mmol/L (22.0-30.0); Chloride 104 mmol/L (98-107); Cholesterol 146 mg/dl (140-200); Creatinine,Serum 0.70 mg/dl (0.52-1.04); Estimated Glomerular Filt Rate 93 ml/min (>60); GFR (African American) 113 ML/MIN (>60); Globulin 2.1 g/dL (1.3-3.2); Glucose 95 mg/dl (74-100); HDL Cholesterol 30 mg/dl (40-60); Potassium 4.4 mmoL/L (3.5-5.1); Sodium 139 mmol/L (136-145); Total Protein,Serum 6.6 g/dl (6.3-8.2); Triglycerides 180 mg/dl (30-150)
[2025-06-11 15:11] LABS: C-Reactive Protein 2.6 mg/L (0-4)
[2025-06-11 15:20] LABS: 25-OH Vitamin D, Total 29.1 ng/mL (30-100)
[2025-06-11 15:21] LABS: T4 (Thyroxine) 8.6 ug/dl (5.53-11.0)
[2025-06-11 15:35] LABS: Thyroid Stimulating Hormone 0.40 uIU/mL (0.465-4.68)
[2025-06-11 15:39] LABS: Ferritin 72.1 ng/ml (6.24-137)
[2025-06-11 15:54] LABS: Vitamin B12 271 pg/mL (239-931)
[2025-06-11 16:53] LABS: Hemoglobin A1C 6.0 % (4.0-6.0)
[2025-06-12 08:13] LABS: Triiodothyronine (T3) Free 3.1 pg/mL (2.0-4.4)
--- OUTSIDE RECORDS SUMMARY | 2025-06-13 12:30 | XMS_ITS | Patient Health Record ---
Author Organization [facility] Address [address] [place] [address] Care Team Providers Care Director Property Name Role Phone [facility] Pr matheuser Unavailable Leticia Olvera Unavailable [phone] Allergies Allergen (clinical drug ingredient) Drug/Non Drug Allergy documented on EMR Reaction Allergy Type Onset Date Status clindamycin Clindamycin Unknown Drug Allergy Act sadie ketamine Ketamine Unknown Drug Allergy Active nystatin Nystatin Unknown Drug Allergy Active Penicillin Unknown Drug Allergy Active Results Component Value Reference Range Notes X ray : Wrist, right (CPT 73 110) Reviewed date:08/21/2024 09:11:16 AM Interpretation:Normal Performing Lab: Notes/Report: Normal Reason For Referral No Information Medications Medication SIG (Take, Route, Frequency, Duration) Notes Start Date End Date Status amLODIPine Besylate 10 MG TAKE 1 TABLET BY MOUTH ONCE DAILY Oral; Duration: 90 Days Not-Taking Fenofibrate 145 MG Oral; Duration: 90 Days Not-Taking Propranolol HCl ER 120 MG TAKE 1 CAPSULE BY MOUTH ONCE DAILY Oral; Duration: 90 Days Not-Taking Jardiance 25 MG TAKE 1 TABLET BY MOUTH ONCE DAILY Oral; Duration: 30 Days Not-Taking busPIRone HCl 15 MG TAKE 1 TABLET BY MOUTH TWICE DAILY Oral; Duration: 30 Days Z,Unavailab le Active Fenofibrate 145 MG TAKE 1 TABLET BY MOUTH ONCE DAILY Oral; Duration: 90 Days Active Propranolol HCl ER 120 MG Oral; Duration: 90 Days Active busPIRone HCl 15 MG TAKE 1 TABLET BY MOUTH TWICE DAILY Oral; Duration: 30 Days Not-Taking amLODIPine Besylate 10 MG TAKE 1 TABLET BY MOUTH ONCE DAILY Oral; Duration: 90 Days Z760,Unavailab le Active Jardiance 25 MG TAKE 1 TABLET BY MOUTH ONCE DAILY Oral; Duration: 30 Days Active Problems Problem Type SNOMED Code ICD Code Onset Dates Problem Status W/U Status Risk Notes Problem Afib (I48.91) Active confirmed Vital Signs Heart Rate 76 /min 08/07/2024 Temperature 98.0 degrees Fahrenheit 08/07/2024 Respiratory Rate 17 /min 08/07/2024 Blood pressure diastolic 80 mm Hg 08/07/2024 Oximetry 98 % 08/07/2024 Height-cm 167.64 cm 08/07/2024 Weight-kg 97.52 kg 08/07/2024 Height 66 in 08/07/2024 Blood pressure systolic 122 mm Hg 08/07/2024 Weight 215 lbs 08/07/2024 BMI 34.7 kg/m2 08/07/2024 Encounters Encounter Location Date Provider Diagnosis [facility] [address] [place] [address] 08/07/2024 Leticia Caulder Sprain of right wrist, initial encounter S63.501A ; Decreased range of motion of right wrist M25.631 and Swelling of right wrist M25.431 Assessments Encounter Date Diagnosis (ICD Code) Assessment Notes Treatment Notes Treatment Clinical Notes Section Notes 08/07/2024 Sprain of right wrist, initial encounter (ICD-10 - S63.501A) Rest the sore area. You may have to stop doing the activity that caused the pain for a while. Take an gtjk-zhg-bzcccfj pain medicine, such as acetaminophen (Tylenol), ibuprofen (Advil, Motrin), or naproxen (Aleve). Read and follow all instructions on the label. Do not take two or more pain medicines at the same time unless the doctor told you to. Too much acetaminophen (Tylenol) can be harmful. Put ice or a cold pack on the sore area for 10 to 20 minutes at a time. Try to do this every 1 to 2 hours for the next 3 days (when you are awake) or until any swelling goes down. Put a thin cloth between the ice and your skin. Prop up the sore area on a pillow when you ice it or anytime you sit or lie down during the next 3 days. Try to keep it above the level of your heart. This will help reduce swelling. Follow advice for wearing and caring for a sling, splint, or cast. In some cases, you may wear one of these for a while to help your tendon heal. 08/07/2024 Decreased range of motion of right wrist (ICD-10 - M25.631) Take medication as prescribed and until completion. Put ice packs on swelling for 10 to 15 minutes at a time, and make sure to put a thin cloth between the ice pack and your skin. Monitor for any new or worsening sx including increased redness/swelling or closing of the nasal or respiratory passages. If you have a severe reaction, go to the ER 08/07/2024 Swelling of right wrist (ICD-10 - M25.431) Do not put weight on the injured joint for at least a day or two. For the first day or two after an injury, do not take hot showers or baths, and do not use hot packs. The heat could make swelling worse. Put ice or a cold pack on the sore joint for 10 to 20 minutes at a time. Try to do this every 1 to 2 hours for the next 3 days (when you are awake) or until the swelling goes down. Put a thin cloth between the ice and your skin. Wrap the injury in an elastic bandage. Do not wrap it too tightly because this can cause more swelling. Prop up the sore joint on a pillow when you ice it or anytime you sit or lie down during the next 3 days. Try to keep it above the level of your heart. This will help reduce swelling. Take an ydeb-iph-cfoiwuw pain medicine, such as acetaminophen (Tylenol), ibuprofen (Advil, Motrin), or naproxen (Aleve). Read and follow all instructions on the label. After 1 or 2 days of rest, begin moving the joint gently. While the joint is still healing, you can begin to exercise using activities that do not strain or hurt the painful joint. 08/07/2024 Other Please arrange follow up with your primary medical clinic to discuss your conditions as soon as possible. Return to clinic if signs or symptoms persist or worsen. For life threatening emergencies, please call 911 or go to the closest emergency room. You must understand that we are not a primary care facility and you have received Urgent Care treatment only, and that you may be released before all of your medical problems are known or treated. You, the patient, are responsible to make arrangements with your primary care physician as instructed. Please arrange for follow up medical care for your condition to occur within one week. You must understand that as an Urgent Care Clinic, we are not responsible for routine healthcare maintenance. Such services are to be provided by your primary care physicians, even though you may have been seen multiple times in our facility. If your condition worsens, we recommend that you receive another evaluation at the emergency room immediately or contact your primary medical clinic to discuss your concerns. Patient / family / guardian questions, concerns, and treatment plan were answered to full satisfaction and in agreement with the plan of care. Plan Of Treatment No Information Insurance Providers Payer Name Payer Address Payer Phone Subscriber Number Group Number Insured Name Patient Relationship to Insured Coverage Start Date Coverage End Date [employer] [address] [address] [place] [address] [id number] Kassandra Ocampo Self - patient is the insured 4 Medical (General) History Medical History History ICD Code Afib I48.91 hyperthyroidism anxiety migraine headaches
--- OUTSIDE RECORDS SUMMARY | 2025-06-13 12:30 | XMS_ITS | Patient Health Record ---
Author Organization [facility] Address [address] [place] [address] Care Team Providers Care Economic Specialist Name Role Phone NORA ISBELL Primary Care Provider MEREDITH FONSECA [phone] Allergies Allergen (clinical drug ingredient) Drug/Non Drug Allergy documented on EMR Reaction Allergy Type Onset Date Status No Known Food Allergy Unknown Drug Allergy active Penicillin hives Drug Allergy active Results Component Value Reference Range Flag Notes HEMOGLOBIN A1c Reviewed date:08/22/2024 02:36:57 PM Interpretation: Performing Lab:[facility][id number] [id number] Rafat Quintero MD Notes/Report: FASTING: YES FASTING:YES HEMOGLOBIN A1c 6.5 <5.7 % of total Hgb H For someone without known diabetes, a hemoglobin A1c value of 6.5% or greater indicates that they may have diabetes and this should be confirmed with a follow-up test. For someone with known diabetes, a value <7% indicates that their diabetes is well controlled and a value greater than or equal to 7% indicates suboptimal control. A1c targets should be individualized based on duration of diabetes, age, comorbid conditions, and other considerations. Currently, no consensus exists regarding use of hemoglobin A1c for diagnosis of diabetes for children. CBC (INCLUDES DIFF/PLT) Reviewed date:08/22/2024 02:36:44 PM Interpretation: Performing Lab:[facility][id number] [id number] Rafat Quintero MD Notes/Report: FASTING: YES FASTING:YES WHITE BLOOD CELL COUNT 10.6 3.8-10.8 Thousand/uL N RED BLOOD CELL COUNT 4.74 3.80-5.10 Million/uL N HEMOGLOBIN 14.8 11.7-15.5 g/dL N HEMATOCRIT 45.9 35.0-45.0 % H MCV 96.8 80.0-100.0 fL N MCH 31.2 27.0-33.0 pg N MCHC 32.2 32.0-36.0 g/dL N For adults, a slight decrease in the calculated MCHC value (in the range of 30 to 32 g/dL) is most likely not clinically significant; however, it should be interpreted with caution in correlation with other red cell parameters and the patient's clinical condition. RDW 12.5 11.0-15.0 % N PLATELET COUNT 327 140-400 Thousand/uL N MPV 9.8 7.5-12.5 fL N ABSOLUTE NEUTROPHILS 6678 0981-2043 cells/uL N ABSOLUTE LYMPHOCYTES 3000 850-3900 cells/uL N ABSOLUTE MONOCYTES 509 200-950 cells/uL N ABSOLUTE EOSINOPHILS 329 15-500 cells/uL N ABSOLUTE BASOPHILS 85 0-200 cells/uL N NEUTROPHILS 63 N LYMPHOCYTES 28.3 N MONOCYTES 4.8 N EOSINOPHILS 3.1 N BASOPHILS 0.8 N COMPREHENSIVE METABOLIC PANE L Reviewed date:08/22/2024 02:37:25 PM Interpretation: Performing Lab:[facility], [id number], [id number] Rafat Quintero MD Notes/Report: FASTING: YES FASTING:YES GLUCOSE 107 65-99 mg/dL H For someone without known diabetes, a glucose value between 100 and 125 mg/dL is consistent with prediabetes and should be confirmed with a follow-up test. Fasting reference interval UREA NITROGEN (BUN) 12 7-25 mg/dL N CREATININE 0.72 0.50-0.97 mg/dL N EGFR 110 > OR = 60 mL/min/1.73m2 N BUN/CREATININE RATIO SEE NOTE: 6-22 (calc) Not Reported: BUN and Creatinine are within reference range. SODIUM 137 135-146 mmol/L N POTASSIUM 4.0 3.5-5.3 mmol/L N CHLORIDE 107 98-110 mmol/L N CARBON DIOXIDE 24 20-32 mmol/L N CALCIUM 9.0 8.6-10.2 mg/dL N PROTEIN, TOTAL 6.6 6.1-8.1 g/dL N ALBUMIN 4.1 3.6-5.1 g/dL N GLOBULIN 2.5 1.9-3.7 g/dL (calc) N ALBUMIN/GLOBULIN RATIO 1.6 1.0-2.5 (calc) N BILIRUBIN, TOTAL 0.4 0.2-1.2 mg/dL N ALKALINE PHOSPHATASE 44 31-125 U/L N AST 11 10-30 U/L N ALT 10 6-29 U/L N JILL SCR, IFA W/REFL TITER/PA TTERN/LUPUS PNL 4 Reviewed date:08/22/2024 02:37:16 PM Interpretation: Performing Lab:[facility][id number] [facility], [id number] [address] Adela Muñoz Notes/Report: FASTING:YES FASTING: YES JILL SCREEN, IFA NEGATIVE NEGATIVE N JILL IFA is a first line screen for detecting the presence of up to approximately 150 autoantibodies in various autoimmune diseases. A negative JILL IFA result suggests an JILL-associated autoimmune disease is not present at this time, but is not definitive. If there is high clinical suspicion for Sjogren's syndrome, testing for anti-SS-A/Ro antibody should be considered. Anti-Jasmin-1 antibody should be considered for clinically suspected inflammatory myopathies. AC-0: Negative International Consensus on JILL Patterns (https://doi.org/10.1515/ kndy-1478-9802) For additional information, please refer to http://education.[employer]/faq/QNU359 (This link is being provided for informational/ educational purposes only.) COMPLEMENT COMPONENT C3C 166 83-193 mg/dL N COMPLEMENT COMPONENT C4C 24 15-57 mg/dL N DNA (DS) ANTIBODY 1 N IU/mL Interpretation < or = 4 Negative 5-9 Indeterminate > or = 10 Positive RIBOSOMAL P ANTIBODY <1.0 NEG <1.0 NEG AI N SM ANTIBODY <1.0 NEG <1.0 NEG AI N SM/DANCE COSTUME DESIGNER ANTIBODY <1.0 NEG <1.0 NEG AI N SJOGREN'S ANTIBODY (SS-A) <1.0 NEG <1.0 NEG AI N SJOGREN'S ANTIBODY (SS-B) <1.0 NEG <1.0 NEG AI N THYROID PEROXIDASE ANTIBODIES 1 <9 IU/mL N SCL-70 ANTIBODY <1.0 NEG <1.0 NEG AI N RHEUMATOID FACTOR 11 <14 IU/mL N TSH+FREE T4 Reviewed date:08/22/2024 02:36:52 PM Interpretation: Performing Lab:[facility], [id number] [id number] Rafat Quintero MD Notes/Report: FASTING:YES FASTING: YES TSH 0.81 N Reference Range > or = 20 Years 0.40-4.50 Ranges First trimester 0.26-2.66 Second trimester 0.55-2.73 Third trimester 0.43-2.91 T4, FREE 1.1 0.8-1.8 ng/dL N LIPID PANEL WITH REFLEX TO D IRECT LDL Reviewed date:08/22/2024 02:37:03 PM Interpretation: Performing Lab:[facility][id number] [id number] Rafat Quintero MD Notes/Report: FASTING:YES FASTING: YES CHOLESTEROL, TOTAL 121 <200 mg/dL N HDL CHOLESTEROL 38 > OR = 50 mg/dL L TRIGLYCERIDES 143 <150 mg/dL N LDL-CHOLESTEROL 60 N Reference range: <100 Desirable range <100 mg/dL for primary prevention; <70 mg/dL for patients with CHD or diabetic patients with > or = 2 CHD risk factors. LDL-C is now calculated using the Guillermo-Mike calculation, which is a validated novel method providing better accuracy than the Friedewald equation in the estimation of LDL-C. Guillermo DUQUE et al. GERARDO. 2013;310(19): 2784-7062 (http://education.[employer].PayPay/faq/QHH178) CHOL/HDLC RATIO 3.2 <5.0 (calc) N NON HDL CHOLESTEROL 83 <130 mg/dL (calc) N For patients with diabetes plus 1 major ASCVD risk factor, treating to a non-HDL-C goal of <100 mg/dL (LDL-C of <70 mg/dL) is considered a therapeutic option. Reason For Referral No Information Medications Medication SIG (Take, Route, Frequency, Duration) Notes Start Date End Date Status Propranolol HCl ER 120 MG Capsule Extended Release 24 Hour 1 capsule Orally Once a day; Duration: 90 days Active Propafenone HCl 225 MG Tablet 1 tablet Orally every 8 hrs; Duration: 90 days Active amLODIPine Besylate 10 MG Tablet 1 tablet Orally Once a day; Duration: 90 days 08/03/2024 Active Fenofibrate 145 MG Tablet 1 tablet Orall y Once a day; Duration: 90 days Active busPIRone HCl 15 MG Tablet 1 tablet Oral ly Twice a day; Duration: 90 days Active Social History Tobacco Use: Social History Observation Description Date Details (start date - stop date) Never Smoker NA - NA Sex Assigned At : Social History Observation Description Sex Assigned At Female Social History DAST/AUDIT-C Screening Social Info Question Answer Notes AUDIT-C (Standard) Did you have a drink containing alcohol in the past year? No Points 0 Interpretation Negative Caffeine/Drugs/Alcohol/COW/B AM: Social Info Question Answer Notes SBIRT (2018 Edition) Patient refused/dec lined SBIRT screening at this time? No 1. How often do you have a drink containing alcohol? Never 2. How many drinks containing alcohol do you have on a typical day when you are drinking? 1 or 2 3. How often do you have five or more drinks on one occasion? Never SCORE 0 Interpretation Negative How many times in the past year have you used an illegal drug or used a prescription medication for non-medical reasons? 0 Total Count 0 Interpretation Negative Caffeine Intake: 1-2 cups per day Tobacco Use: Social Info Question Answer Notes Tobacco Control (Standard) Tobacco use: Nonsmoker Additional Details Category Social Info Options Details Caffeine/Drugs/Alcohol/CO W/BAM: Do you smoke marijuana? Admits, Hailey Thacker 08/03/2024 12:08:28 PM EDT > Problems Problem Type SNOMED Code ICD Code Onset Dates Problem Status W/U Status Risk Notes Problem Mixed hyperlipidemia (800367694) Mixed hyperlipidemia (E78.2) Active confirmed Problem Essential hypertension (67288543) Essential hypertension (I10) Active confirmed Problem Body mass index 35.00 to 39.99 ([id number]) Body mass index (BMI) of 36.0-36.9 in adult (Z68.36) Active confirmed Problem Migraine without aura, not refractory (139281354) Migraine without aura and without status migrainosus, not intractable (G43.009) Active confirmed Problem Type II diabetes mellitus without complication (166714672) Type 2 diabetes, HbA1c goal < 7% (E11.9) Active confirmed Problem Longstanding persistent atrial fibrillation (275872567) Longstanding persistent atrial fibrillation (I48.11) Active confirmed Vital Signs Heart Rate 77 /min 08/03/2024 Temperature 98.9 degrees Fahrenheit 08/03/2024 Respiratory Rate 18 /min 08/03/2024 Height-cm 167.64 cm 08/03/2024 Oximetry 98 % 08/03/2024 Blood pressure diastolic 60 mm Hg 08/03/2024 Weight-kg 102.49 kg 08/03/2024 Height 66 in 08/03/2024 Blood pressure systolic 115 mm Hg 08/03/2024 Weight 226.0 lbs 08/03/2024 BMI 36.47 kg/m2 08/03/2024 Procedures Procedure Date Ordered Date Performed Result Body Sit e TOBACCO USE ASSESSED 08/03/2024 N/A TOBACCO NON-USER 08/03/2024 N/A SYST BP < 130 MM HG 08/03/2024 N/A DIAST BP < 80 MM HG 08/03/2024 N/A DEPRESSION SCREEN ANNUAL 08/03/2024 N/A ALCOHOL/SUBS INTERV 15-30 MIN 08/03/2024 N/A Pain severity quantified- Pain present 08/03/2024 N/A BMI outside normal parameter s, no f/u plan documented, no reason given 08/03/2024 N/A Screening for depression doc umented as negative, so f/u is not required 08/03/2024 N/A Medication Review 08/03/2024 N/A Allergies Reviewed 08/03/2024 N/A Encounters Encounter Location Date Provider Diagnosis [facility] [address], [place] [address] 08/03/2024 NORA ISBELL Essential hypertensi on I10 ; Encounter for medication refill Z76.0 ; Lyme disease A69.20 ; Longstanding persistent atrial fibrillation I48.11 ; Migraine without aura and without status migrainosus, not intractable G43.009 ; Type 2 diabetes, HbA1c goal < 7% E11.9 ; Mixed hyperlipidemia E78.2 ; Body mass index (BMI) of 36.0-36.9 in adult Z68.36 ; Exercise counseling Z71.82 ; Nutritional counseling Z71.3 and Encounter for screening Z13.9 [facility] [address] [place] [address] 08/03/2024 NORA ISBELL Assessments Encounter Date Diagnosis (ICD Code) Assessment Notes Treatment Notes Treatment Clinical Notes Section Notes 08/03/2024 Essential hypertension (ICD-10 - I10) Encouraged on regular BP monitoring at home. Advised on consistent use of prescribed medication. Monitor for hypotension/ dizziness with position changes. Bring BP log to every appt. Encouraged decreasing salt intake. Increase exercising with a goal of 30 minutes 5 times per week. BP goal <140/90 08/03/2024 Encounter for medication refill (ICD-10 - Z76.0) 08/03/2024 Lyme disease (ICD-10 - A69.20) Most cases of Lyme disease can be successfully with oral antibiotics. Education provided on using a DEET based insect repellant, removing ticks with tweezers promptly and staying out of heavily wooded areas. Educated that certain neurological symptoms can present if not treated quickly or treatment is not adhered too. 08/03/2024 Longstanding persistent atrial fibrillation (ICD-10 - I48.11) [id number] score more than 2, not on anticoagulation 08/03/2024 Migraine without aura and without status migrainosus, not intractable (ICD-10 - G43.009) Try muscle relaxation exercises. Try to spend at least a half-hour each day doing something you find relaxing - listening to music, gardening, taking a hot bath or reading. Get enough sleep, but don't oversleep. The average adult needs six to eight hours of sleep a night. It's best to go to bed and wake up on a regular schedule. Rest and relax. If possible, rest in a dark, quiet room when you feel a headache coming on. Place an ice pack wrapped in a cloth on the back of your neck and apply gentle pressure to painful areas on your scalp. Keep a headache diary. Continue keeping your headache diary. It will help you learn more about what triggers your headaches and what treatment is most effective. 08/03/2024 Type 2 diabetes, HbA1c goal < 7% (ICD-10 - E11.9) Encouraged consistent use of medications as prescribed. Continue close blood sugar monitoring. Bring Blood sugar log to each appointment. Continue at home foot care. Discussed use of baby aspirin and statin. 08/03/2024 Mixed hyperlipidemia (ICD-10 - E78.2) - Continue above regimen, pt verbalized understanding of importance of medication compliance - Will reeval [facility] lipid panel within 12 months and gauge ASCVD risk with alterations in regimen made as needed - Readdress at next appt Advised to increase healthy fats to diet such as olive oil, avocados, nuts and fatty fish such as salmon and tuna 08/03/2024 Body mass index (BMI) of 36.0-36.9 in adult (ICD-10 - Z68.36) Encouraged low calorie diet, exercise, and weight loss advised. 08/03/2024 Exercise counseling (ICD-10 - Z71.82) Notes: - Discussed with patient the importance of eating more fresh fruits and vegetables. Eating less highly processed foods, especially processed snack foods high in carbohydrates. - Discussed limiting beverages with calories such as soda, sweet tea, juice, and alcoholic drinks. - Discussed limiting sweets and desserts at night Advised patient to exercise on a regular basis with an emphasis on 150 minutes of cardiovascular exercise per week, explained to pt as 30 minutes per day, 5 days a week of walking, biking, running, or through the use of an elliptical or equivalent device. Discussed brisk walking just 10 minutes at a time, multiple times per day to achieve the goal of 150 minutes weekly 08/03/2024 Nutritional counseling (ICD-10 - Z71.3) Notes: - Discussed with patient the importance of eating more fresh fruits and vegetables. Eating less highly processed foods, especially processed snack foods high in carbohydrates. - Discussed limiting beverages with calories such as soda, sweet tea, juice, and alcoholic drinks. - Discussed limiting sweets and desserts at night 08/03/2024 Encounter for screening (ICD-10 - Z13.9) Plan Of Treatment Pending Test Test Name Order Date LIPID PANEL WITH REFLEX TO DIRECT LDL TSH+FREE T4 08/03/2024 JILL SCR, IFA W/REFL TITER/PATTERN/LUPUS PNL 4 08/03/2024 COMPREHENSIVE METABOLIC PANEL 08/03/2024 CBC (INCLUDES DIFF/PLT) 08/03/2024 HEMOGLOBIN A1c 08/03/2024 TOBACCO USE ASSESSED 08/03/2024 TOBACCO NON-USER 08/03/2024 SYST BP < 130 MM HG 08/03/2024 DIAST BP < 80 MM HG 08/03/2024 DEPRESSION SCREEN ANNUAL 08/03/2024 ALCOHOL/SUBS INTERV 15-30 MIN 08/03/2024 Pain severity quantified- Pain present 1 BMI outside normal parameters, no f/u pl an documented, no reason given 08/03/2024 Screening for depression documented as n egative, so f/u is not required 08/03/2024 Medication Review 08/03/2024 Allergies Reviewed 08/03/2024 Insurance Providers Payer Name Payer Address Payer Phone Subscriber Number Group Number Insured Name Patient Relationship to Insured Coverage Start Date Coverage End Date [employer] [address] [address] [place] [address] [id number] Kassandra Ocampo Self - patient is the insured [facility] [address] [address] [place] [address] [phone] [id number] Kassandra Ocampo Self - patient is the insured Medical (General) History Medical History History ICD Code Hyperthyroidism Mental Illness Hypertension allergies Hearing Problems Chronic Ear Infections Frequent Headaches Surgical History Surgery Date(Month/Year) Section Hospitalization History Reason Date(Month/Year)
--- OUTSIDE RECORDS SUMMARY | 2025-06-13 12:30 | XMS_ITS | Clinical Summary ---
Author Organization Healthcare Address [address] [place] [address] Care Team Providers Care Fine Arts Chair Name Role Phone Hernandez Vela MD Primary Care Provider [phone] Family History Medical History Relation Name Comments Conversions - Other Father Congenit al heart failure Diabetes type II Father Breast cancer Maternal Great-Grandfather Diabetes type II Mother Migraines Mother Relation Name Status Comments Father Maternal Great-Grandfather Mother Social History Tobacco Use Types Packs/Day Years Used Date Smoking Tobacco: Former Alcohol Use Standard Drinks/Week Comments No 0 (1 standard drink = 0.6 oz pur e alcohol) Comments Unknown Sex and Gender Information Value Date Recorded Sex Assigned at Not on file Legal Sex Female 6:14 PM EDT Gender Identity Not on file Sexual Orientation Not on file Last Filed Vital Signs Vital Sign Reading Time Taken Comments Blood Pressure 144/99 11/08/2017 7:53 AM EST Pulse 73 11/08/2017 7:53 AM EST Temperature 36.7 C (98.1 F) 11/08/2017 7:53 AM EST Respiratory Rate 16 11/08/2017 7:53 AM EST Oxygen Saturation - - Inhaled Oxygen Concentration - - Weight 112 kg (247 lb 0.1 oz) 11/08/2017 7:53 AM EST Height 168.9 cm (5' 6.5 ) 11/08/2017 7:53 AM EST Body Mass Index 39.27 11/08/2017 7:53 AM EST Plan of Treatment Health Maintenance Due Date Last Done Comments [facility]-Depression Screening 1986 [facility]-/Child/Adol SDOH Screenings 1986 [facility]-Varicella Vaccines (1 of 2 - 13+ 2-dose series) 1999 [facility]- SDOH Screenings 02/25/2004 [facility]-Adult SDOH Screenings 02/25/2004 [facility]-Hepatitis B Vaccines (1 of 3 - 19+ 3-dose series) 2005 [facility]-Pap Smear 2007 HPV Vaccines (1 - 3-dose SCD M series) 2013 [facility]-Cervical Cancer Screening 02/25/2016 [facility]-HPV/Cotest 02/25/2016 [id number] Vaccine (1 - 20 24-25 season) 2024 [facility]-Influenza Vaccine (#1) 2025 [facility]-DTaP,Tdap,and Td Vaccine s (2 - Td or Tdap) 08/25/2026 08/25/2016 [facility]-Zoster Vaccines (1 of 2) 02/25/2036 [facility]-HIB Vaccines Aged Out No longer e ligible based on patient's age to complete this topic [facility]-Hepatitis A Vaccines Aged Out No longer eligible based on patient's age to complete this topic [facility]-IPV Vaccines Aged Out No longer e ligible based on patient's age to complete this topic [facility]-Pneumococcal Vaccine: Pediatrics (0 to 5 Years) and At-Risk Patients (6 to 49 Years) Aged Out No long er eligible based on patient's age to complete this topic [facility]-Rotavirus Vaccines Aged Out No lo nger eligible based on patient's age to complete this topic Insurance [facility] [id number] [employer] [facility] MEDICAID Care Teams Fine Arts Chair Relationship Specialty Start Date End Date Hernandez Vela MD [address] [place] [address] [address]1 [address] [place] [id number] PCP - General 02/28/21
--- OUTSIDE RECORDS SUMMARY | 2025-06-13 12:30 | XMS_ITS | Clinical Summary ---
Author Organization [facility] Address [address] [place] [address] Phone Care Team Providers Care Insole And Heel Stiffener Name Role Phone Christopher Nath MD Primary Care Provider [phone] Allergies Active Allergy Reactions Criticality Noted Date Comments Clindamycin 08/25/2016 Penicillins 08/25/2016 Medications citalopram (CELEXA) 40 mg Oral Tablet Take 40 mg by mouth daily. Active meloxicam (MOBIC) 7.5 mg Oral Tablet Take 7.5 mg by mouth daily. Active propranolol (INDERAL) 80 mg Oral Tablet Take 80 mg by mouth 3 times daily. Active LORazepam (ATIVAN) 0.5 mg Oral Tablet Take 0.5 mg by mouth every 6 hours as needed for Anxiety. Active cyclobenzaprine (FLEXERIL) 10 mg Oral Tablet Take by mouth 3 times daily. Active Immunizations Immunization Administration Dates Next Due Tdap 08/25/2016 Surgical History Surgery Date Site/Laterality Comments SECTION SKIN GRAFT Medical History Medical History Date Comments Hypertension Depression Anxiety Social History Tobacco Use Types Packs/Day Years Used Date Smoking Tobacco: Former Alcohol Use Standard Drinks/Week Comments No 0 (1 standard drink = 0.6 oz pur e alcohol) Comments Unknown Sex and Gender Information Value Date Recorded Sex Assigned at Not on file Legal Sex Female 3:56 PM EST Gender Identity Not on file Sexual Orientation Not on file Obstetrics History Last Filed Vital Signs Vital Sign Reading Time Taken Comments Blood Pressure 152/88 08/25/2016 5:21 PM EST Pulse 86 08/25/2016 5:59 PM EST Temperature 36.7 C (98 F) 08/25/2016 5:59 PM EST Respiratory Rate 20 08/25/2016 5:59 PM EST Oxygen Saturation 99% 08/25/2016 4:00 PM EST Inhaled Oxygen Concentration - - Weight 111.1 kg (245 lb) 08/25/2016 4:00 PM EST Height 167.6 cm (5' 6 ) 08/25/2016 4:00 PM EST Body Mass Index 39.54 08/25/2016 4:00 PM EST Plan of Treatment Health Maintenance Due Date Last Done Comments Annual Wellness Exam 1989 Hepatitis B Vaccine (1 of 3 - 19+ 3-dose series) 2005 Cervical Cancer Screening 2007 Pap Smear 2007 HPV/Pap Cotest 02/25/2016 COVID-19 Vaccine ( - 2023-2 5 season) 2024 Influenza Vaccine (#1) 2025 DTaP/TDaP/Td (2 - Td or Tdap) 08/25/2026 08/25/2016 Meningococcal B Vaccine Aged Out No l onger eligible based on patient's age to complete this topic Pneumococcal Vaccine 0-49 Aged Out No longer eligible based on patient's age to complete this topic Insurance [employer] Care Teams Insole And Heel Stiffener Relationship Specialty Start Date End Date Christopher Nath MD [id number] [place] [id number] PCP - General Family Medicine 08/25/16
== END 2025-06-11 23:59 | disposition home or self-care (01) ==
LOC: LAB.DROPOF 06-13 12:28
PROVIDERS: PCP Nurse Practitioner Family; Visit Provider Nurse Practitioner Family
DX: S02.5XXA Fracture of tooth (traumatic), initial encounter for closed fracture (principal); E05.90 Thyrotoxicosis, unspecified without thyrotoxic crisis or storm; E11.9 Type 2 diabetes mellitus without complications; R20.0 Anesthesia of skin; R20.2 Paresthesia of skin
CPT/HCPCS: 80053; 80061; 82306; 82607; 82728; 83036; 84436; 84443; 84481; 85025; 86140